=== PATIENT | female | born 1950 | race Hispanic/Latino ===

== ENCOUNTER → 2017-04-10 | Day surgery (SDC) | payer OTHER ==
[2017-04-07 16:00] LABS: BASOPHILS % 0.4 % (0.0-1.0); EOSINOPHILS # (AUTO) 0.1 (0.0-0.4); EOSINOPHILS % 0.7 % (0.0-6.0); HEMATOCRIT 42.7 % (34.2-44.1); HEMOGLOBIN 13.8 g/dL (12.0-16.0); LYMPHOCYTES # (AUTO) 2.8 (1.0-3.2); LYMPHOCYTES % 29.6 % (18.0-39.1); MEAN CORPUSCULAR HEMOGLOBIN 29.4 pg (28-32); MEAN CORPUSCULAR HGB CONC 32.3 g/dL (31-35); MEAN CORPUSCULAR VOLUME 90.9 fL (81-99); MONOCYTES # (AUTO) 0.5 (0.2-0.8); MONOCYTES % 5.4 % (4.4-11.3); NEUTROPHILS % 63.7 % (38.7-80.0); PLATELET COUNT 205 x10e3/uL (140-360); RED CELL DISTRIBUTION WIDTH 13.1 % (11.7-14.4)
[2017-04-07 16:11] LABS: ANION GAP 10.8 mmol/L (8-16); BLOOD UREA NITROGEN 13 mg/dL (7-26); BUN/CREATININE RATIO 15 (6-25); CALCIUM 9.8 mg/dL (8.4-10.2); CARBON DIOXIDE 29 mmol/L (22-29); CHLORIDE 105 mmol/L (98-107); CREATININE, SERUM 0.85 mg/dL (0.57-1.11); EST GLOMERULAR FILTRATION RATE > 60 ML/MIN (60-); GLUCOSE 83 mg/dL (74-118); POTASSIUM 3.8 mmol/L (3.5-5.1); SODIUM 141 mmol/L (136-145)
--- NOTE | 2017-04-07 16:30 | Diagnostic Imaging Report ---
PROCEDURE: Frontal and lateral views of the chest. COMPARISON: Patients [facility], , CHEST 2 VIEWS, 05/24/2015, 22:01. INDICATIONS: PRE-OP SURGERY ON FOOT MONDAY FINDINGS: Lines/tubes: None. Lungs: The lungs are well inflated and clear. There is no evidence of pneumonia or pulmonary edema. Pleura: There is no pleural effusion or pneumothorax. Heart and mediastinum: The heart and the mediastinum are normal. Bones: No acute bony abnormality. Multilevel degenerative changes in the thoracic spine. IMPRESSION: 1. No acute cardiopulmonary abnormalities. Kirk Santos M.D. Dictated by: Kirk Santos M.D. on 04/07/2017 at 16:38 Electronically approved by: Kirk Santos M.D. on 04/07/2017 at 16:38
[~2017-04-10] MED LIST: ASPIRIN CHEW81 MG PO; BUPIVACAINE HCL 0.5% INJ 30 ML VIAL INJ ONE; CEPHALEXIN; CLINDAMYCIN PHOS 900MG/ D5W 50 50 ML IV ONE; DEXAMETHASONE SOD PHOS INJ 4 MG/ML VIAL ONE; ENALAPRIL PO; FENTANYL CITRATE/PF 100MCG/2 ML INJ ONE; GLIMEPIRIDE PO; HUMALOG MIX; LIDOCAINE HCL 2% LOCAL INJ 5 ML SDV VIAL INJ ONE; MIDAZOLAM HCL 2 MG/2 ML VIAL ONE; ONDANSETRON HCL INJ 2 MG/ML VIAL ONE; PRAVASTATIN; PROAIR HFA INH8.5 GM INH; PROPOFOL IV EMULSION 10 MG/ML 20 ML VIAL ONE; RESTASIS1 EACH OP; SEVOFLURANE INHAL SOLN 250 ML PEN BTL ONE; TYLENOL #3; VICTOZA 2-0.6 MG/0.1 SC; Z.0.FLEXERIL5 MG
--- NOTE | 2017-04-10 08:41 | Operative Report ---
DATE OF PROCEDURE: April 10, 2017 PREOPERATIVE DIAGNOSES 1. Left hallux valgus. 2. Left heel spur with plantar fasciitis. 3. Left verruca plantaris. POSTOPERATIVE DIAGNOSES 1. Left hallux valgus. 2. Left heel spur with plantar fasciitis. 3. Left verruca plantaris. PLANNED PROCEDURES: 1. Left Torito bunionectomy with 1st metatarsal osteotomy and internal fixation. 2. Left heel spur excision with plantar fasciotomy. 3. Left hyfrecation of verruca. MOBILE HOME TECHNICIAN: Rey Easton DPM ANESTHESIA: General with postoperative block consisting of 20 mL of 0.5% Marcaine plain mixed with 1 mL of dexamethasone phosphate. HEMOSTASIS: Pneumatic thigh tourniquet set at 350 mmHg for a total time of approximately 45 minutes. MATERIALS: One 2.4-mm x 13-mm cortical bone screw, 2-0 Vicryl, 3-0 Vicryl, 4-0 Prolene. One TLS drain. ESTIMATED BLOOD LOSS: Less than 10 mL. PATHOLOGY: None. OPERATIVE PROCEDURE IN DETAIL: Patient was seen in the preoperative waiting room where the correct procedure and site were identified. The patient was brought into the operating room and placed on the operating table in the supine position. General anesthesia was initiated at this time. A well-padded pneumatic tourniquet was placed about the patient's left thigh. The left foot and ankle were then scrubbed, prepped and draped in the usual aseptic manner. The left foot, ankle and leg was exsanguinated with an Esmarch bandage, and the pneumatic thigh tourniquet was inflated to 350 mmHg for a total time approximately 40 minutes. Attention was directed to the dorsomedial aspect of the patient's left foot where a 5-cm curvilinear incision was made directly over the 1st metatarsophalangeal joint. The incision was carried through subcutaneous tissues, them from deeper underlying structures. All vital neurovascular structures were identified and retracted medially and laterally, and all bleeders were cauterized or ligated as deemed necessary. Attention was then directed to the 1st interspace where through the same incision, a full lateral release was performed consisting of deep transverse metatarsal ligament, lateral collateral ligament as well as the fibular sesamoid ligament. The hallux was then put through a range motion and found to be functioning in a more proper anatomic alignment. Next, attention was directed back to the 1st metatarsophalangeal joint where an inverted-L capsulotomy was performed. The capsule was reflected medially to allow for good visualization of 1st metatarsal head. Utilizing a sagittal saw, the medial eminence was resected and passed off to the back table. At this point, a [id number] chevron osteotomy was performed with the dorsal limb longer to allow for proper fixation. The capital fragment was then transposed laterally approximately 3 to 4 mm and impacted onto the shaft of the metatarsal. Utilizing techniques of AO fixation, one 2.4-mm x 13-mm cortical bone screw was placed. Fixation site is stable. This was confirmed via intraoperative fluoroscopy. The wound was then flushed with copious amounts of sterile saline. Capsular and deep tissue were reapproximated with 2-0 Vicryl and the subcutaneous tissue with 3-0 Vicryl. The skin was closed using a running interlocking stitch with 4-0 Prolene. Left heel spur excision: Attention was directed to the medial aspect of the patient's left heel where a 3-cm linear incision was made. The incision was carried through subcutaneous tissues, them from deeper underlying structures. All vital neurovascular structures were identified and retracted dorsally and plantarly. All bleeders were cauterized or ligated as deemed necessary. At this time, the plantar fascia was identified dorsal and plantar with Metzenbaum scissors. This was cut approximately one-third to one-half of the medial band of the plantar fascia. Next, the medial heel spur was identified. Utilizing osteotome and mallet as well as rongeur and rasp, this was smoothed to anatomic alignment and confirmed via intraoperative fluoroscopy. The wound was then flushed with copious amounts of sterile saline. Deep tissues were reapproximated with 3-0 Vicryl and subcutaneous tissue with 3-0 Vicryl, and the skin was closed utilizing a running interlocking stitch with 4-0 Prolene. Hyfrecation of verruca plantaris. Attention was directed to the plantar aspect of the patient's left 3rd and 4th metatarsal heads where 2 small hyperkeratotic lesions with absence of skin lines and pinpoint bleeding upon debridement were noted. Utilizing a #15 blade, these were debrided, followed by hyfrecation with electrocautery. All incision sites were dressed with Adaptic, 4 x 4's, Kerlix, Bernard wrap. Prior to wound closure on the heel spur, per [employer] architect protocol , one TLS drain was placed and found to be functioning. Patient was then transferred to the postoperative recovery unit with vital signs stable and vascular status intact. Patient was monitored there for a short period time before being sent home with following written and oral instructions: 1. Keep the dressing clean, dry and intact. 2. The patient is to be nonweightbearing to the left lower extremity and to avoid any ambulation until being seen in the office. 3. Patient was given the office number and instructed to contact us if any problems should arise. Job#: [id number]
== END | disposition home or self-care (01) ==
LOC: OR 06:56
PROVIDERS: ATTEND Podiatrist Foot & Ankle Surgery
DX: M20.12 Hallux valgus (acquired), left foot (principal); M77.32 Calcaneal spur, left foot; B07.0 Plantar wart; M72.2 Plantar fascial fibromatosis; E11.9 Type 2 diabetes mellitus without complications; J45.909 Unspecified asthma, uncomplicated; I10 Essential (primary) hypertension; K21.9 Gastro-esophageal reflux disease without esophagitis; E66.01 Morbid (severe) obesity due to excess calories; I49.9 Cardiac arrhythmia, unspecified; Z01.810 Encounter for preprocedural cardiovascular examination; Z01.812 Encounter for preprocedural laboratory examination; Z01.818 Encounter for other preprocedural examination; Z79.82 Long term (current) use of aspirin
CPT/HCPCS: 17110; 28119; 28296; 36415 ×2; 71046; 80048; 82948; 85025; 93005; C1713; J1100; J2001; J2250; J2405; 76000

== ENCOUNTER 2018-05-02 23:41 | Emergency (ER) | payer OTHER, MEDICARE ==
[~2018-05-02] VITALS: Ht 160 cm; Wt 88.0 kg
[~2018-05-02 23:41] MED LIST changes: -BUPIVACAINE HCL 0.5% INJ 30 ML VIAL INJ ONE; -CLINDAMYCIN PHOS 900MG/ D5W 50 50 ML IV ONE; -DEXAMETHASONE SOD PHOS INJ 4 MG/ML VIAL ONE; -FENTANYL CITRATE/PF 100MCG/2 ML INJ ONE; -LIDOCAINE HCL 2% LOCAL INJ 5 ML SDV VIAL INJ ONE; -MIDAZOLAM HCL 2 MG/2 ML VIAL ONE; -ONDANSETRON HCL INJ 2 MG/ML VIAL ONE; -PROPOFOL IV EMULSION 10 MG/ML 20 ML VIAL ONE; -SEVOFLURANE INHAL SOLN 250 ML PEN BTL ONE
--- OUTSIDE RECORDS SUMMARY | 2018-05-02 23:44 | XMS REPORT ---
Author [facility] Address Unknown Phone Unavailable Care Team Providers Care Undercar Specialist Name Role Phone Anny CULP Unavailable Unavailable Problems This patient has no known problems. Allergies, Adverse Reactions, Alerts This patient has no known allergies or adverse reactions. Medications This patient has no known medications. Results Test Description Test Time Test Comments Text Results Atomic Results Result Comments CHEST 2 VIEWS [place] [address] Patient Name: ALFA RANGEL MR #: [id number] : 1950 Age/Sex: 66/F Req #: [id number] Adm Physician: Ordered by: DASHAWN CULP DPM Report #: [id number] Location: OR Room/Bed: Procedure: [id number] DX/CHEST 2 VIEWS Exam Date: 04/07/17 Exam Time: 1615 REPORT STATUS: Signed PROCEDURE: Frontal and lateral views of the chest. COMPARISON: [facility], , CHEST 2 VIEWS, 05/24/2015, 22:01. INDICATIONS: PRE-OP SURGERY ON FOOT MONDAY FINDINGS: Lines/tubes: None. Lungs: The lungs are well inflated and clear. There is no evidence of pneumonia or pulmonary edema. Pleura: There is no pleural effusion or pneumothorax. Heart and mediastinum: The heart and the mediastinum are normal. Bones: No acute bony abnormality. Multilevel degenerative changes in the thoracic spine. IMPRESSION: 1. No acute cardiopulmonary abnormalities. Wendi Santos M.D. Dictated by: Wendi Santos M.D. on 04/07/2017 at 16:38 Electronically approved by: Wendi Santos M.D. on 04/07/2017 at 16:38 Dictated By: WENDI SANTOS MD [id number] Transcribed By: CHRIS on 04/07/17 1638 COPY TO: DASHANW CULP DPM
[2018-05-02] MEDS ORDERED: ASPIRIN 81 MG CHEW TAB PO ONE (23:45)
[2018-05-02] MEDS ORDERED: ONDANSETRON HCL INJ 2MG/ML 2ML 2 MG/ML VIAL IV STA (23:57)
[2018-05-03] MEDS ORDERED: MECLIZINE HCL 12.5 MG TAB PO ONE
[2018-05-03 00:24] LABS: BASOPHILS % 0.5 % (0.0-1.0); EOSINOPHILS # (AUTO) 0.1 (0.0-0.4); EOSINOPHILS % 1.4 % (0.0-6.0); HEMATOCRIT 41.3 % (34.2-44.1); HEMOGLOBIN 13.5 g/dL (12.0-16.0); LYMPHOCYTES # (AUTO) 2.6 (1.0-3.2); LYMPHOCYTES % 33.6 % (18.0-39.1); MEAN CORPUSCULAR HEMOGLOBIN 28.5 pg (28-32); MEAN CORPUSCULAR HGB CONC 32.7 g/dL (31-35); MEAN CORPUSCULAR VOLUME 87.3 fL (81-99); MONOCYTES # (AUTO) 0.5 (0.2-0.8); MONOCYTES % 5.9 % (4.4-11.3); NEUTROPHILS # (AUTO) 4.6 (2.1-6.9); NEUTROPHILS % 58.3 % (38.7-80.0); PLATELET COUNT 212 x10e3/uL (140-360); RED BLOOD COUNT 4.73 x10e6/uL (3.6-5.1)
[2018-05-03] MEDS ORDERED: SODIUM CHLORIDE 0.9% 1000ML 1,000 ML IV ONE (00:30)
[2018-05-03] MEDS: SODIUM CHLORIDE 0.9% 1000ML 1,000 ML IV SCH ×2 (00:34→00:54)
[2018-05-03 00:55] LABS: BILIRUBIN,URINE NEGATIVE (NEGATIVE); CLARITY,URINE HAZY (CLEAR); COLOR,URINE YELLOW (YELLOW); KETONES,URINE NEGATIVE (NEGATIVE); LEUKOCYTE ESTERASE ,URINE NEGATIVE (NEGATIVE); NITRITE,URINE NEGATIVE (NEGATIVE); PROTEIN,URINE DIPSTICK NEGATIVE (NEGATIVE); URINE UROBILINOGEN 0.2 mg/dL (0.2 - 1)
[2018-05-03 01:01] LABS: ALANINE AMINOTRANSFERASE 18 IU/L (0-55); ALBUMIN 3.4 g/dL (3.5-5.0); ALKALINE PHOSPHATASE 127 IU/L (40-150); ANION GAP 15.7 mmol/L (8-16); BLOOD UREA NITROGEN 13 mg/dL (7-26); BUN/CREATININE RATIO 18 (6-25); CALCIUM 9.7 mg/dL (8.4-10.2); CARBON DIOXIDE 26 mmol/L (22-29); CHLORIDE 101 mmol/L (98-107); CREATINE KINASE 85 IU/L (29-168); CREATININE, SERUM 0.74 mg/dL (0.57-1.11); EST GLOMERULAR FILTRATION RATE > 60 ML/MIN (60-); GLUCOSE 107 mg/dL (74-118); POTASSIUM 3.7 mmol/L (3.5-5.1); SODIUM 139 mmol/L (136-145)
[2018-05-03 01:06] LABS: BACTERIA,URINE MANY /HPF; EPITHELIAL CELLS,URINE MODERATE /LPF; RBC,URINE 0-5 /HPF (0-5); RENAL EPITHELIAL CELLS,URINE FEW; TRANSITIONAL EPI CELLS,URINE FEW; WBC,URINE (MAN) 0-5 /HPF (0-5)
--- NOTE | 2018-05-03 01:39 | Diagnostic Imaging Report ---
EXAMINATION: CHEST 2 VIEWS INDICATION: Chest pressure. COMPARISON: Chest x-ray 05/24/2015 FINDINGS: PA and lateral views TUBES and LINES: None. LUNGS: Lungs are well inflated. Lungs are clear. There is no evidence of pneumonia or pulmonary edema. PLEURA: No pleural effusion or pneumothorax. HEART AND MEDIASTINUM: The cardiomediastinal silhouette is unremarkable. BONES AND SOFT TISSUES: No acute osseous lesion. Soft tissues are unremarkable. UPPER ABDOMEN: No free air under the diaphragm. IMPRESSION: No acute thoracic abnormality. Signed by: DR. Jason Leiva MD on 05/03/2018 1:36 AM
[2018-05-03 01:51] VITALS: BP 130/59
== END 2018-05-03 02:05 | disposition home or self-care (01) ==
LOC: ER 23:41
DX: R42 Dizziness and giddiness (principal); R11.0 Nausea; R53.1 Weakness
CPT/HCPCS: 36415; 71046; 80053; 81001; 82550; 82553; 84484; 85025; 93005; 99284; J2405; J7030; J8597

== ENCOUNTER 2020-07-18 09:49 | Emergency (ER) | payer MEDICARE, OTHER ==
[~2020-07-18] VITALS: Ht 160 cm; Wt 88.0 kg
[2020-07-18] MEDS ORDERED: PANTOPRAZOLE 40 MG 10ML VIAL IV NR (10:08)
[2020-07-18] MEDS ORDERED: MORPHINE SULFATE INJ 4 MG/ML INJ 1ML IV NR (10:15)
[2020-07-18 10:27] LABS: BASOPHILS % 0.4 % (0.0-1.0); EOSINOPHILS # (AUTO) 0.1 (0.0-0.4); HEMATOCRIT 43.8 % (34.2-44.1); HEMOGLOBIN 13.8 g/dL (12.0-16.0); LYMPHOCYTES # (AUTO) 2.7 (1.0-3.2); LYMPHOCYTES % 29.9 % (18.0-39.1); MEAN CORPUSCULAR HEMOGLOBIN 28.5 pg (28-32); MEAN CORPUSCULAR HGB CONC 31.5 g/dL (31-35); MEAN CORPUSCULAR VOLUME 90.3 fL (81-99); MONOCYTES # (AUTO) 0.5 (0.2-0.8); MONOCYTES % 5.7 % (4.4-11.3); NEUTROPHILS # (AUTO) 5.7 (2.1-6.9); NEUTROPHILS % 62.7 % (38.7-80.0); PLATELET COUNT 188 x10e3/uL (140-360); RED BLOOD COUNT 4.85 x10e6/uL (3.6-5.1); RED CELL DISTRIBUTION WIDTH 12.9 % (11.7-14.4)
[2020-07-18] MEDS ORDERED: ONDANSETRON HCL INJ 2MG/ML 2ML 2 MG/ML VIAL IV ONE (10:30)
[2020-07-18] MEDS ORDERED: SODIUM CHLORIDE 0.9% 1000ML 1,000 ML IV ONE (10:30)
[2020-07-18] MEDS ORDERED: DIATRIZOATE MEGL/DIATRIZOA SOD 30 ML BTL PO ONE (10:34)
[2020-07-18 10:43] LABS: ALANINE AMINOTRANSFERASE 16 IU/L (0-55); ALBUMIN 3.3 g/dL (3.5-5.0); ALBUMIN/GLOBULIN RATIO 0.9 (0.8-2.0); ALKALINE PHOSPHATASE 148 IU/L (40-150); AMYLASE 39 U/L (25-125); BLOOD UREA NITROGEN 9 mg/dL (7-26); BUN/CREATININE RATIO 13 (6-25); CALCIUM 8.9 mg/dL (8.4-10.2); CARBON DIOXIDE 25 mmol/L (22-29); CHLORIDE 105 mmol/L (98-107); CREATINE KINASE 62 IU/L (29-168); CREATININE, SERUM 0.72 mg/dL (0.57-1.11); EST GLOMERULAR FILTRATION RATE > 60 ML/MIN (60-); GLUCOSE 130 mg/dL (74-118); LIPASE 34 U/L (8-78); MAGNESIUM 2.1 MG/DL (1.3-2.1); SODIUM 142 mmol/L (136-145)
[2020-07-18 10:56] LABS: INR 0.9; PROTHROMBIN TIME 12.7 seconds (11.9-14.5)
[2020-07-18 10:57] LABS: PARTIAL THROMBOPLASTIN TIME 40.4 seconds (23.8-35.5)
[2020-07-18 12:47] LABS: CLARITY,URINE SL CLOUDY (CLEAR); COLOR,URINE YELLOW (YELLOW); KETONES,URINE NEGATIVE (NEGATIVE); LEUKOCYTE ESTERASE ,URINE NEGATIVE (NEGATIVE); NITRITE,URINE NEGATIVE (NEGATIVE); PROTEIN,URINE DIPSTICK NEGATIVE (NEGATIVE); URINE UROBILINOGEN 0.2 mg/dL (0.2 - 1)
[2020-07-18 12:59] LABS: BACTERIA,URINE RARE /HPF; EPITHELIAL CELLS,URINE FEW /LPF; RBC,URINE 0-5 /HPF (0-5); WBC,URINE (MAN) 0-5 /HPF (0-5)
[2020-07-18 14:18] VITALS: BP 134/78
== END 2020-07-18 14:20 | disposition home or self-care (01) ==
LOC: ER 09:53
DX: R10.11 Right upper quadrant pain (principal); K57.32 Diverticulitis of large intestine without perforation or abscess without bleeding; E11.65 Type 2 diabetes mellitus with hyperglycemia; I10 Essential (primary) hypertension; E78.5 Hyperlipidemia, unspecified; Z20.822 Contact with and (suspected) exposure to COVID-19
CPT/HCPCS: 36415; 71045; 74176; 80053; 81001; 82150; 82550; 82553; 83690; 83735; 84484; 85025; 85610; 85730; 87086; 93005; 99284; C9113; J2270; J2405; J7030; U0002

== ENCOUNTER 2020-07-20 19:29 | Inpatient (IN) | payer MEDICARE, OTHER ==
[~2020-07-20] VITALS: Ht 160 cm; Wt 88.0 kg
[2020-07-20] MEDS ORDERED: DIPHENHYDRAMINE HCL INJ 50 MG/ML VIAL IV ONE (20:15)
[2020-07-20] MEDS ORDERED: METHYLPREDNISOLONE SOD SUCC 125 MG/2ML VIAL IV ONE (20:15)
[2020-07-20 20:17] LABS: BASOPHILS % 0.6 % (0.0-1.0); EOSINOPHILS # (AUTO) 0.1 (0.0-0.4); EOSINOPHILS % 1.4 % (0.0-6.0); HEMATOCRIT 36.2 % (34.2-44.1); LYMPHOCYTES # (AUTO) 2.4 (1.0-3.2); LYMPHOCYTES % 35.9 % (18.0-39.1); MEAN CORPUSCULAR HEMOGLOBIN 29.6 pg (28-32); MEAN CORPUSCULAR HGB CONC 33.1 g/dL (31-35); MEAN CORPUSCULAR VOLUME 89.4 fL (81-99); MONOCYTES # (AUTO) 0.5 (0.2-0.8); MONOCYTES % 7.1 % (4.4-11.3); NEUTROPHILS # (AUTO) 3.6 (2.1-6.9); NEUTROPHILS % 54.8 % (38.7-80.0); PLATELET COUNT 192 x10e3/uL (140-360); RED BLOOD COUNT 4.05 x10e6/uL (3.6-5.1); RED CELL DISTRIBUTION WIDTH 12.7 % (11.7-14.4)
[2020-07-20 20:21] LABS: CLARITY,URINE CLEAR (CLEAR); COLOR,URINE YELLOW (YELLOW); KETONES,URINE NEGATIVE (NEGATIVE); LEUKOCYTE ESTERASE ,URINE NEGATIVE (NEGATIVE); NITRITE,URINE NEGATIVE (NEGATIVE); PROTEIN,URINE DIPSTICK NEGATIVE (NEGATIVE); URINE UROBILINOGEN 0.2 mg/dL (0.2 - 1)
[2020-07-20 20:39] LABS: ALANINE AMINOTRANSFERASE 16 IU/L (0-55); ALBUMIN 3.1 g/dL (3.5-5.0); ALBUMIN/GLOBULIN RATIO 0.9 (0.8-2.0); ALKALINE PHOSPHATASE 167 IU/L (40-150); ANION GAP 10.6 mmol/L (8-16); BLOOD UREA NITROGEN 10 mg/dL (7-26); BUN/CREATININE RATIO 14 (6-25); CALCIUM 8.6 mg/dL (8.4-10.2); CARBON DIOXIDE 28 mmol/L (22-29); CHLORIDE 105 mmol/L (98-107); CREATINE KINASE 69 IU/L (29-168); CREATININE, SERUM 0.74 mg/dL (0.57-1.11); EST GLOMERULAR FILTRATION RATE > 60 ML/MIN (60-); GLUCOSE 206 mg/dL (74-118); POTASSIUM 3.6 mmol/L (3.5-5.1); SODIUM 140 mmol/L (136-145)
[2020-07-20] MEDS ORDERED: METRONIDAZOLE 500MG/NS 100ML 100 ML IV STA (20:43)
[2020-07-20] MEDS ORDERED: CIPROFLOXACIN 400 MG/D5W 200ML 200 ML IV STA (20:43)
[2020-07-20] MEDS: PREDNISONE 20 MG TAB PO ONE ×2 (21:00→21:30)
[2020-07-20] MEDS ORDERED: MORPHINE SULFATE INJ 4 MG/ML INJ 1ML IV PRN (21:00)
[2020-07-20] MEDS: SODIUM CHLORIDE 0.9% 1000ML 1,000 ML IV SCH (22:00)
[2020-07-21] VITALS (8 sets, daily range): BP systolic 114–139; BP diastolic 52–88
[2020-07-21] MEDS: PREDNISONE 20 MG TAB PO ONE (00:25)
[2020-07-21] MEDS ORDERED: PREDNISONE 20 MG TAB PO ONE ×3 (02:00→09:45)
[2020-07-21] MEDS ORDERED: DEXTROSE 50% SYRINGE 50 ML IV PRN (02:30)
[2020-07-21] MEDS: SODIUM CHLORIDE 0.9% 1000ML 1,000 ML IV SCH ×3 (04:07→22:47)
[2020-07-21] MEDS ORDERED: LANSOPRAZOLE30 MG PO (05:14)
[2020-07-21] MEDS ORDERED: PROPRANOLOL HCL10 MG PO (05:16)
[2020-07-21] MEDS ORDERED: AMLODIPINE BESYL5 MG PO (05:17)
[2020-07-21 06:32] LABS: BASOPHILS % 0.1 % (0.0-1.0); HEMATOCRIT 38.5 % (34.2-44.1); HEMOGLOBIN 12.9 g/dL (12.0-16.0); LYMPHOCYTES # (AUTO) 0.8 (1.0-3.2); LYMPHOCYTES % 9.2 % (18.0-39.1); MEAN CORPUSCULAR HEMOGLOBIN 29.5 pg (28-32); MEAN CORPUSCULAR HGB CONC 33.5 g/dL (31-35); MEAN CORPUSCULAR VOLUME 87.9 fL (81-99); MONOCYTES % 0.5 % (4.4-11.3); NEUTROPHILS # (AUTO) 7.6 (2.1-6.9); NEUTROPHILS % 89.7 % (38.7-80.0); PLATELET COUNT 208 x10e3/uL (140-360); RED BLOOD COUNT 4.38 x10e6/uL (3.6-5.1); RED CELL DISTRIBUTION WIDTH 12.7 % (11.7-14.4)
[2020-07-21 06:58] LABS: ALANINE AMINOTRANSFERASE 19 IU/L (0-55); ALBUMIN 3.1 g/dL (3.5-5.0); ALBUMIN/GLOBULIN RATIO 0.9 (0.8-2.0); ALKALINE PHOSPHATASE 146 IU/L (40-150); ANION GAP 11.9 mmol/L (8-16); BLOOD UREA NITROGEN 13 mg/dL (7-26); BUN/CREATININE RATIO 18 (6-25); CALCIUM 8.9 mg/dL (8.4-10.2); CARBON DIOXIDE 25 mmol/L (22-29); CHLORIDE 107 mmol/L (98-107); CREATININE, SERUM 0.73 mg/dL (0.57-1.11); EST GLOMERULAR FILTRATION RATE > 60 ML/MIN (60-); GLUCOSE 279 mg/dL (74-118); POTASSIUM 3.9 mmol/L (3.5-5.1); SODIUM 140 mmol/L (136-145)
[2020-07-21 07:37] LABS: EOSINOPHILS % (MANUAL) 1 % (0-7); LYMPHOCYTES % (MANUAL) 7 % (19-48); MONOCYTES % (MANUAL) 2 % (3.4-9.0); NEUTROPHILS % (MANUAL) 90 % (40-74); PLATELET ESTIMATE ADEQUATE; PLATELET MORPHOLOGY COMMENT NORMAL; RBC MORPHOLOGY COMMENT NORMAL
[2020-07-21] MEDS ORDERED: DIPHENHYDRAMINE HCL 25 MG CAP PO ONE (09:00)
[2020-07-21] MEDS: INSULIN REGULAR, HUMAN 100 UNIT/1 ML 3ML VIAL SQ SCH ×4 (10:13→22:58)
[2020-07-21] MEDS: CIPROFLOXACIN 400 MG/D5W 200ML 200 ML IV SCH ×2 (10:29→22:47)
[2020-07-21] MEDS: AMLODIPINE BESYLATE 5 MG TAB PO SCH (10:30)
[2020-07-21] MEDS: PROPRANOLOL HCL 10 MG TAB PO SCH ×2 (10:30→17:00)
[2020-07-21] MEDS ORDERED: SODIUM CHLORIDE 0.9% 50ML 50 ML ONE (12:13)
[2020-07-21] MEDS ORDERED: IOPAMIDOL 370 MG/ML 200 ML INFUS..BTL INJ ONE (12:13)
[2020-07-21] MEDS: METRONIDAZOLE 500MG/NS 100ML 100 ML IV SCH ×2 (14:21→22:18)
[2020-07-21] MEDS ORDERED: LANTUS 3ML100 UNITS/ SQ (16:15)
[2020-07-21] MEDS: LANSOPRAZOLE 30 MG PO SCH (17:18)
[2020-07-22] VITALS (9 sets, daily range): BP systolic 102–144; BP diastolic 49–71
[2020-07-22 05:16] LABS: BASOPHILS % 0.2 % (0.0-1.0); HEMOGLOBIN 11.5 g/dL (12.0-16.0); LYMPHOCYTES # (AUTO) 2.1 (1.0-3.2); LYMPHOCYTES % 15.8 % (18.0-39.1); MEAN CORPUSCULAR HGB CONC 32.9 g/dL (31-35); MEAN CORPUSCULAR VOLUME 88.2 fL (81-99); MONOCYTES # (AUTO) 0.6 (0.2-0.8); MONOCYTES % 4.7 % (4.4-11.3); NEUTROPHILS # (AUTO) 10.4 (2.1-6.9); PLATELET COUNT 209 x10e3/uL (140-360); RED BLOOD COUNT 3.97 x10e6/uL (3.6-5.1); RED CELL DISTRIBUTION WIDTH 12.9 % (11.7-14.4)
[2020-07-22 06:01] LABS: ALANINE AMINOTRANSFERASE 16 IU/L (0-55); ALBUMIN 2.8 g/dL (3.5-5.0); ALKALINE PHOSPHATASE 103 IU/L (40-150); ANION GAP 11.5 mmol/L (8-16); BLOOD UREA NITROGEN 9 mg/dL (7-26); BUN/CREATININE RATIO 13 (6-25); CALCIUM 8.4 mg/dL (8.4-10.2); CARBON DIOXIDE 26 mmol/L (22-29); CHLORIDE 111 mmol/L (98-107); CREATININE, SERUM 0.67 mg/dL (0.57-1.11); EST GLOMERULAR FILTRATION RATE > 60 ML/MIN (60-); GLUCOSE 182 mg/dL (74-118); POTASSIUM 3.5 mmol/L (3.5-5.1); SODIUM 145 mmol/L (136-145)
[2020-07-22] MEDS: METRONIDAZOLE 500MG/NS 100ML 100 ML IV SCH ×3 (06:19→22:08)
[2020-07-22] MEDS: INSULIN REGULAR, HUMAN 100 UNIT/1 ML 3ML VIAL SQ SCH ×4 (07:30→21:00)
[2020-07-22] MEDS ORDERED: ACETAMINOPHEN 325 MG TAB PO PRN (07:45)
[2020-07-22] MEDS ORDERED: INSULIN GLARGINE SQ SCH (09:00)
[2020-07-22] MEDS ORDERED: INSULIN GLARGINE 100 UNITS/ML VIAL SQ SCH (09:00)
[2020-07-22] MEDS: LANSOPRAZOLE 30 MG PO SCH (09:00)
[2020-07-22] MEDS: AMLODIPINE BESYLATE 5 MG TAB PO SCH (09:36)
[2020-07-22] MEDS: CIPROFLOXACIN 400 MG/D5W 200ML 200 ML IV SCH ×2 (09:37→22:08)
[2020-07-22] MEDS: PROPRANOLOL HCL 10 MG TAB PO SCH ×2 (09:37→17:00)
[2020-07-22] MEDS: SODIUM CHLORIDE 0.9% 1000ML 1,000 ML IV SCH ×3 (09:38→22:09)
[2020-07-23] VITALS: BP 112/58
[2020-07-23 04:00] VITALS: BP 109/57
[2020-07-23 05:12] LABS: BASOPHILS # (AUTO) 0.1 (0.0-0.1); BASOPHILS % 0.6 % (0.0-1.0); EOSINOPHILS # (AUTO) 0.1 (0.0-0.4); EOSINOPHILS % 0.6 % (0.0-6.0); HEMATOCRIT 37.8 % (34.2-44.1); HEMOGLOBIN 12.5 g/dL (12.0-16.0); LYMPHOCYTES # (AUTO) 3.6 (1.0-3.2); LYMPHOCYTES % 42.3 % (18.0-39.1); MEAN CORPUSCULAR HEMOGLOBIN 29.2 pg (28-32); MEAN CORPUSCULAR HGB CONC 33.1 g/dL (31-35); MEAN CORPUSCULAR VOLUME 88.3 fL (81-99); MONOCYTES # (AUTO) 0.5 (0.2-0.8); NEUTROPHILS # (AUTO) 4.3 (2.1-6.9); NEUTROPHILS % 50.3 % (38.7-80.0); PLATELET COUNT 204 x10e3/uL (140-360); RED BLOOD COUNT 4.28 x10e6/uL (3.6-5.1)
[2020-07-23 05:32] LABS: ALANINE AMINOTRANSFERASE 41 IU/L (0-55); ALBUMIN 3.1 g/dL (3.5-5.0); ALBUMIN/GLOBULIN RATIO 1.1 (0.8-2.0); ALKALINE PHOSPHATASE 101 IU/L (40-150); ANION GAP 12.2 mmol/L (8-16); BLOOD UREA NITROGEN 6 mg/dL (7-26); BUN/CREATININE RATIO 9 (6-25); CALCIUM 8.2 mg/dL (8.4-10.2); CARBON DIOXIDE 27 mmol/L (22-29); CHLORIDE 108 mmol/L (98-107); CREATININE, SERUM 0.64 mg/dL (0.57-1.11); EST GLOMERULAR FILTRATION RATE > 60 ML/MIN (60-); GLUCOSE 96 mg/dL (74-118); POTASSIUM 3.2 mmol/L (3.5-5.1); SODIUM 144 mmol/L (136-145)
[2020-07-23] MEDS: METRONIDAZOLE 500MG/NS 100ML 100 ML IV SCH (05:57)
[2020-07-23] MEDS ORDERED: POTASSIUM CHLORIDE 20 MEQ TAB CR PO ONE (07:30)
[2020-07-23] MEDS: INSULIN REGULAR, HUMAN 100 UNIT/1 ML 3ML VIAL SQ SCH (07:30)
[2020-07-23 07:46] VITALS: BP 127/72
[2020-07-23 09:19] VITALS: BP 127/72
== END 2020-07-23 09:06 | disposition home or self-care (01) | DRG 392 ==
LOC: ER 20:04 → ERHOLD 20:57 → IMCU 07-21 02:38 → OBSVTOIN 07-21 16:28 → MED/SURG3 07-21 19:56
PROVIDERS: ADMIT Family Medicine; ATTEND Family Medicine
DX: K57.32 Diverticulitis of large intestine without perforation or abscess without bleeding (principal); E11.9 Type 2 diabetes mellitus without complications; I10 Essential (primary) hypertension; E78.5 Hyperlipidemia, unspecified; Z20.822 Contact with and (suspected) exposure to COVID-19; Z88.0 Allergy status to penicillin; Z91.041 Radiographic dye allergy status; Z79.82 Long term (current) use of aspirin; Z79.4 Long term (current) use of insulin
CPT/HCPCS: 36415; 74177; 80053; 81001; 82150; 82270; 82550; 82553; 82948; 83690; 83735; 84484; 85025; 93005; 96361; 99284; G0378; J1200; J1817; J2930; J7030; J7512; Q9967; U0002